=== PATIENT | male | born 1970 ===

== ENCOUNTER 2024-06-02 10:15 | Emergency (ER) | payer BC ==
[2024-06-02] MEDS: Ketorolac 60 MG/2 ML SDV IM ONE (11:55)
[2024-06-02] MEDS: Acetaminophen/HYDROcodone 325-5 MG Tab PO ONE (11:56)
[2024-06-02] MEDS: Cyclobenzaprine 10 MG Tab PO ONE (11:56)
== END 2024-06-02 13:25 | disposition home or self-care (01) ==
LOC: MW.ED 10:15
DX: M54.42 Lumbago with sciatica, left side (principal); Z75.8 Other problems related to medical facilities and other health care
CPT/HCPCS: 96372; 99283; A9270; J1885